=== PATIENT | male | born 1950 | race African-American/Black ===

== ENCOUNTER 2016-02-24 14:04 | Inpatient (IN) | payer OTHER ==
[~2016-02-24] VITALS: Ht 172.7 cm; Wt 75.3 kg
--- NOTE | ~2016-02-24 | HC ---
[facility] [place] [address] CONSULTATION Name: DEBBIE SANTOYO Room #: 451-P [facility] IN M.R.#: [id number] Admission: 02/24/16 Attend Phys: Cabrera Krishna MD Discharge: Date of : 54 Report #: [id number] THIS REPORT FOR: //name// CC: FAM unknown Cabrera Krishna The patient is a 65-year-old male admitted with increased shortness of breath, noted to have a history of daily ETOH usage up to a pint of vodka along with marijuana usage and methamphetamine IV. He was diagnosed with a community-acquired pneumonia and large pleural effusion. His course was complicated by a code blue on February 24 where he was noted to have significant aspiration. He was mechanically ventilation. He has since been extubated, has been very slow to recover. He is noted to have considerable cognitive deficits with considerable dysarthric speech and has upper and lower extremity weakness. He has been seen by neurology, thought to have a hypoxic encephalopathy. CT scan of the brain was essentially negative for stroke. We are seeing him in rehabilitation consultation. PAST MEDICAL HISTORY: His prior medical history included back pain and migraines. He has a history of drug abuse as noted above. MEDICATIONS: Please see the full medication listing. SOCIAL HISTORY: The patient is noted to be living with a roommate in an apartment. There are a couple of friends that are there with him. Roommate indicated that he could return back to that apartment when he is felt to be ready for discharge. He apparently receives social security insurance. Psychiatry is seeing him this hospitalization and indicates the patient does not need a guardian, but that at discharge he should be outlined. REVIEW OF SYSTEMS: Somewhat difficult with his dysarthria. Did not complaining of any chest pain, shortness of breath or abdominal discomfort. PHYSICAL EXAMINATION: GENERAL: A 65-year-old -[place]an male in no obvious distress. VITAL SIGNS: Temp 98, pulse 80, respirations 18, blood pressure 117/67. He is dysarthric. He can tell me the name of the hospital and can tell me the state he is in. He is unable to tell me the year. EOMs appeared to be full. I could not detect any obvious focal facial weakness, but again he has some difficulty with pronunciation. He roommate indicated he typically talked that way beforehand per notes. As far as his upper extremities appeared to have bilateral upper extremity weakness, right hand appeared to be somewhat weaker than the left hand with some clumsiness and difficulty with fine finger dexterity. He had a little better dexterity of the left hand. There was some difficulty getting him to follow directions and commands. I would grade his strength at probably a grade 3+/5, left upper extremity, proximal right upper extremity and more of a 3/5 distal right upper extremity. In his lower [address] [address] CONSULTATION Name: DEBBIE SANTOYO Room #: 451-P [facility] IN M.R.#: [id number] Admission: 02/24/16 Attend Phys: Cabrera Krishna MD Discharge: Date of : 54 Report #: [id number] extremities, he appeared a little stronger probably more of grade 3+ to may be 4-/5. DTRs were trace to 1. I did not assess sensation. In physical therapy, he was noted to have very poor command following and was max assist the bed. In speech therapy, he has moderate to severe cognitive and expressive deficits. He is on a mechanical soft, thin liquid diet. ASSESSMENT: A 65-year-old male with the following problems: 1. Hypoxic encephalopathy post-code blue. 2. Significant generalized debilitation. He has weakness of both upper and lower extremities, but will have clumsiness of his hands as well, right more than left. Some of this is difficult to assess with his limited command following. 3. Moderate to severe cognitive and expressive deficits. 4. Acute respiratory failure with emesis/likely aspiration/pneumonia. He has been extubated, completed antibiotics. 5. Pleural effusion with prior thoracentesis, chest tube was removed. 6. Cardiomyopathy. 7. History of IV drug abuse. 8. History of ETOH abuse. PLAN: His tolerance is very limited and he has difficulty with command following. Would consider long-term acute care options such as [facility], etc. If his tolerance improves, he may be a candidate for an acute inpatient rehabilitation stay. Social support is limited, but we will follow along with you. Thank you for asking us to assist in this patient's care. <ELECTRONICALLY SIGNED> By: Magan Gracia MD 03/17/16 1617 1613 2346 Magan Gracia MD /nt
--- NOTE | ~2016-02-24 | HC ---
[facility] [place] [address] CONSULTATION Name: DEBBIE SANTOYO Room #: 451-P ADM IN M.R.#: [id number] Admission: 02/24/16 Attend Phys: Cabrera Krishna MD Discharge: Date of : 54 Report #: [id number] THIS REPORT FOR: //name// CC: FAM unknown Cabrera Krishna DATE OF SERVICE: 03/10/2016 HISTORY OF PRESENT ILLNESS: This gentleman was admitted a couple of weeks ago as undomiciled and an altered mental status. It turns out although he does have a history of drug and alcohol use, he actually does live in a ground floor duplex with Mr. Vitaly Root on [address] There has been overall improvement in his mental state, do agree that his speech has been a bit more understandable at times. He was not very understandable when I saw him today, nor was he able to answer simple questions. PAST PSYCHIATRIC HISTORY: Unable to obtain from the patient. PAST MEDICAL HISTORY: Unable to obtain from the patient. Back pain and migraines per the medical record. There is a right pulmonary infiltrate. SOCIAL HISTORY: Apparently some history of alcohol and drug use. MENTAL STATUS EXAM: -Guine[place] male, confused, disoriented, garbled speech, no agitation. Insight and judgment impaired. DIAGNOSES: AXIS I: Polysubstance use disorder, encephalopathy. AXIS II: Deferred. AXIS III: See past medical history. AXIS IV: Severe. AXIS V: 20. RECOMMENDATIONS: It does not appear that the patient can make decisions or give informed consent at this time. Agree with the medication Seroquel. He has been in restraints recently. It is also possible that we may give some IV Depakote, I will order ammonia if this has not been done to rule out any other causes relative to the encephalopathy. <ELECTRONICALLY SIGNED> By: Lencho Kiser MD 03/17/16 1412 1642 1735 Lencho Kiser MD /nt
--- NOTE | ~2016-02-24 | EEG ---
[facility] [place] [address] ELECTROENCEPHALOGRAM Name: DEBBIE SANTOYO Room #: 244-P ADM IN M.R.#: [id number] Admission: 02/24/16 Attend Phys: Cabrera Krishna MD Discharge: Date of : 54 Report #: [id number] THIS REPORT FOR: //name// CC: FAM unknown Cabrera Krishna DATE OF SERVICE: 02/27/2016 This patient is being evaluated for altered mental status. EEG was done by placing the electrodes by standard 10/20 system of electrode placement. Both referential and sequential montages were used for recording. Background activity in this patient's EEG does go to about 6 Hz and 15-20 microvolts. During of most of the recording, the background activity is slower than that. Photic stimulation is unremarkable. No active epileptiform activity was noticed. IMPRESSION: This is a severely abnormal EEG because it is slow and poorly formed. That is a nonspecific abnormality which can occur with encephalopathy, effect of psychotropic medication, dementia, etc. Well defined cortical activity is present, but presently it is severely abnormal. If prognostication is desired, serial EEG will be necessary. Thank you very much for this referral. <ELECTRONICALLY SIGNED> By: Milton Sibley MD 02/28/16 1235 1804 1837 Milton Sibley MD /nt
--- NOTE | ~2016-02-24 | 2DMMODE ---
[facility] [address] [place] [address] 2 D/M-MODE ECHOCARDIOGRAM Name: DEBBIE SANTOYO Room #: 244-P [facility] IN .R.#: [id number] Admission: 02/24/16 Attend Phys: Cabrera Krishna MD Discharge: Date of : 54 Date of Service: 02/26/16 0833 Report #: [id number] THIS REPORT FOR: //name// Transthoracic Echocardiography Ordering physician: Gurmeet Mobley Referring physician: Gurmeet Mobley Computer Repair Engineer: KHADRA De La Paz Indications/History: Dyspnea, Edema. BP: 121 / HR: 100bpm Height: 67in Weight: 169.6lb 64 Study data: M-mode, complete 2D, complete spectral Doppler, and color Doppler. Location: Bedside. Routine. Image quality was good. 2D measurements Normal Normal LVID ED 49.5mm 36-57 IVS ED 12.1mm 6-11 LVID ES 38.6mm 23-40 LVPW ED 13.1mm 6-11 LA volume 34ml/m2 16-28 AoRoot diam 27.7mm 21-37 index ED LVOT diameter 20mm 18-23 Findings: Left ventricle: The cavity size was normal. Wall thickness was normal. Systolic function was mildly reduced. The estimated ejection fraction was in the range of 45% to 50%. Diffuse hypokinesis. Regional wall motion abnormalities: Possible hypokinesis of the basalinferior myocardium. Right ventricle: The cavity size was dilated. Systolic function was reduced by visual assessment. Right atrium: The atrium was dilated. Left atrium: The atrium was at the upper limits of normal in size. Volume index: 34ml/m2 (S). Aortic valve: Trileaflet; mildly thickened, mildly calcified leaflets. Doppler: There was no stenosis. Mild regurgitation. Peak velocity: 142.9cm/s (S). [facility] [address] [place] [address] 2 D/M-MODE ECHOCARDIOGRAM Name: DEBBIE SANTOYO Room #: 244-P [facility] IN Juan Ramon#: [id number] Admission: 02/24/16 Attend Phys: Cabrera Krishna MD Discharge: Date of : 54 Date of Service: 02/26/16 0833 Report #: [id number] Mitral valve: Mildly calcified annulus. Doppler: There was no evidence for stenosis. Mild regurgitation. Peak E-wave velocity: 66.1cm/s. Peak A-wave velocity: 85.5cm/s. Tricuspid valve: Structurally normal valve. Doppler: There was no evidence for stenosis. Mild regurgitation. Regurgitant peak velocity: 288.1cm/s. Peak RV-RA gradient: 33mm Hg (S). Pulmonic valve: Structurally normal valve. Doppler: There was no evidence for stenosis. Trivial regurgitation. Pericardium: There was no pericardial effusion. Aorta: Aortic root: The aortic root was normal in size. Pulmonary artery: Systolic pressure was estimated to be 48mm Hg. Diastolic function: Doppler parameters are consistent with abnormal left ventricular relaxation (grade 1 diastolic dysfunction). Systemic veins: Inferior vena cava: The vessel was dilated; respirophasic changes in dimension were absent. Conclusions 1. Left ventricle: Systolic function was mildly reduced. The estimated ejection fraction was in the range of 45% to 50%. Possible hypokinesis of the basalinferior myocardium. Doppler parameters are consistent with abnormal left ventricular relaxation (grade 1 diastolic dysfunction). 2. Right ventricle: The cavity size was dilated. Systolic function was reduced by visual assessment. 3. Right atrium: The atrium was dilated. 4. Aortic valve: Trileaflet; mildly thickened, mildly calcified leaflets. There was no stenosis. Mild regurgitation. 5. Mitral valve: Mildly calcified annulus. Mild regurgitation. 6. Pericardium, extracardiac: There was no pericardial effusion. [facility] [address] [place] [address] 2 D/M-MODE ECHOCARDIOGRAM Name: DEBBIE SANTOYO Room #: 244-P ADM IN M.R.#: [id number] Admission: 02/24/16 Attend Phys: Cabrera Krishna MD Discharge: Date of : 54 Date of Service: 02/26/1633 Report #: [id number] 7. Pulmonary arteries: Systolic pressure was estimated to be 48mm Hg. <ELECTRONICALLY SIGNED> By: Jose Garcia MD, [facility] 02/26/16920 0 Jose Garcia MD, [facility] /sybil
--- NOTE | ~2016-02-24 | EKG ---
[address] [address] ELECTROCARDIOGRAM REPORT Name: DEBBIE SANTOYO Room #: 244-P ADM IN M.R.#: [id number] Admission: 02/24/16 Attend Phys: Cabrera Krishna MD Discharge: Date of : 54 Report #: [id number] THIS REPORT FOR: //name// [facility] Test Date: 2016-02-25 Test Time: 18:58:16 Pat Name: DEBBIE SANTOYO Department: Room: 244 Gender: M Marketing Reporting Analyst: Awa SHEPHERD : 1950 Requested By: Cabrera Krishna Order Number: [id number] MD: Dash Blanc Measurements Intervals [place] Rate: 123 P: 39 DE: 136 QRS: 124 QRSD: 145 T: 41 QT: 339 QTc: 485 Interpretive Statements Sinus tachycardia Probable left atrial enlargement RBBB and LPFB LVH by voltage Electronically Signed On 02-26-2016 8:21:19 CATTLE INSPECTOR by Dash Blanc [email or web address] <ELECTRONICALLY SIGNED> By: Dash Blanc MD 02/26/16 0821 1857 57 Dash Blanc MD /MARLO
--- NOTE | ~2016-02-24 | H ---
[facility] [place] [address] HISTORY AND PHYSICAL Name: DEBBIE SANTOYO Room #: 244-P ADM IN M.R.#: [id number] Admission: 02/24/16 Attend Phys: Cabrera Krishna MD Discharge: Date of : 54 Report #: [id number] THIS REPORT FOR: //name// CC: FAM unknown Cabrera Krishna DATE OF SERVICE: 02/24/2016 CHIEF COMPLAINT: Shortness of air. HISTORY OF PRESENT ILLNESS: The patient is a 65-year-old male who presented to the ER with increasing shortness of air for the past several weeks, became significantly worse in the last day or two. He started over the counter meds without relief. He has been nauseated as well and has occasional vomiting. He does report he drinks alcohol daily up to a pint of vodka. He also smokes marijuana on a regular basis and has used methamphetamine at least twice a week by injecting it. He says his last use of it was 2 days ago, his last drink was today. PAST MEDICAL HISTORY: Significant for: 1. Back pain. 2. Migraines. MEDICATIONS: No home meds. SOCIAL HISTORY: He does smoke cigarettes and marijuana, drinks alcohol as above and uses methamphetamine and marijuana. REVIEW OF SYSTEMS: CONSTITUTIONAL: He is not aware of any fevers or chills. HEENT: No headaches or visual changes. CHEST: Per above with cough and sputum production and shortness of air. GASTROINTESTINAL: Currently he is positive for nausea, no diarrhea. GENITOURINARY: No burning or frequency. EXTREMITIES: Sores on his arms from injecting. No new complaints. OBJECTIVE: VITAL SIGNS: In the ER, blood pressure is 177/96, pulse is 110, respiratory rate 24, O2 sat was 100% on 2 liters. GENERAL: The patient is awake, alert and more comfortable, reports now with the oxygen, he is in no acute distress. His next neighbor is with him at the bedside and helps with the history. She has been considered to be a power of consumer attorney per him. HEENT: His mucous membranes are moist. NECK: Supple, without adenopathy, thyromegaly or bruits. LUNGS: Chest shows wheezing bilaterally with crackles in the base on the left. [address] [address] HISTORY AND PHYSICAL Name: DEBBIE SANTOYO Room #: 244-P [facility] IN M.R.#: [id number] Admission: 02/24/16 Attend Phys: Cabrera Krishna MD Discharge: Date of : 54 Report #: [id number] CARDIOVASCULAR: Regular rhythm with a 3/6 systolic ejection murmur. ABDOMEN: Soft, nondistended, nontender, no masses. Bowel sounds are active. EXTREMITIES: 2+ edema in the knees. Pulses are intact. NEUROLOGIC: He has normal motor and sensory bilaterally. SKIN: He has multiple nodules with ulcerations over the veins on both arms. LABORATORY DATA: EKG shows sinus tachycardia at a rate of 110. He has IVCD as well. His sodium is 135, potassium 4.8, chloride 97, bicarbonate 31, BUN 11, creatinine 0.7, glucose is 88, magnesium 1.7. AST is 75, ALT 45, CK is 135. MB is 3.4. Troponin less than 0.04. C-reactive protein is 13.7. BNP was 1399, albumin 3.3. INR 1.5. D-dimer 1.69. WBC is 7.9, hemoglobin 7.9, hematocrit 26.5, platelet count 446; 79 segs, 15 lymphs. His HIV was nonreactive. Chest x-ray shows extensive right hemithorax classification with infiltrate and effusion and possible mass. CT shows a large right pleural effusion with atelectasis involving the middle and lower lobe on the right. ASSESSMENT: 1. Community acquired pneumonia. 2. History of IV drug use. 3. History of alcohol abuse. 4. Severe anemia. 5. Large pleural effusion. PLAN: 1. He will be admitted, started on pneumonia protocol, we will cover him with vancomycin and Zosyn in light of his IV drug use and we will consult IR for possible draining if the effusion tomorrow. We will consult Pulmonary to see tomorrow. 2. For the anemia, he already has been ordered transfusion of packed red cells for today. We will do GI prophylaxis for any possible bleeding. We will heme test stools. 3. Alcohol abuse. We will place him on lorazepam for alcohol withdrawal. <ELECTRONICALLY SIGNED> By: Jamal Garcia MD 03/02/16 1632 02 42 Jamal Garcia MD /nt
--- NOTE | ~2016-02-24 | EKG ---
[address] [place] [address] ELECTROCARDIOGRAM REPORT Name: DEBBIE SANTOYO Room #: 459-P ADM IN M.R.#: [id number] Admission: 02/24/16 Attend Phys: Cabrera Krishna MD Discharge: Date of : 54 Report #: [id number] THIS REPORT FOR: //name// [facility] Test Date: 2016-02-24 Test Time: 17:21:33 Pat Name: DEBBIE SANTOYO Department: Room: 459 Gender: M Hvac Journeyman: SHADY : 1950 Requested By: Rhett Noble Order Number: [id number] MD: Jose Garcia Measurements Intervals [place] Rate: 111 P: 41 GA: 141 QRS: 76 QRSD: 138 T: 27 QT: 362 QTc: 492 Interpretive Statements Sinus tachycardia Right bundle branch block No previous ECG available for comparison Electronically Signed On 02-25-2016 9:00:35 INTERIOR DESIGN PRINCIPAL by Jose Garcia [email or web address] <ELECTRONICALLY SIGNED> By: Jose Garcia MD, [facility] 02/25/16 0900 172 20 Jose Garcia MD, FACC /EPI
--- NOTE | ~2016-02-24 | HC ---
[facility] [place] [address] CONSULTATION Name: DEBBIE SANTOYO Room #: 451-P [facility] IN M.R.#: [id number] Admission: 02/24/16 Attend Phys: Cabrera Krishna MD Discharge: 03/18/16 Date of : 54 Report #: [id number] THIS REPORT FOR: //name// CC: FAM unknown Cabrera Krishna DATE OF SERVICE: 03/06/2016 ATTENDING PHYSICIAN: Miya Gusman M.D. REASON FOR CONSULTATION: Refractory hypernatremia. HISTORY OF PRESENT ILLNESS: This unfortunate gentleman presented with shortness of breath, apparently was taking no medications, really had not been getting any medical care and reportedly was homeless. He developed worsening pneumonia and then a cardiorespiratory arrest and has developed anoxic brain injury. He was eventually extubated. He is now up on the floor but having trouble with refractory hypernatremia with serum sodium today of 155. PAST MEDICAL HISTORY: Really not much documented. The patient is not much of a historian, really not giving me much of anything at this point. Otherwise, past history is notable for alcoholism, marijuana and cigarette smoking and amphetamine use. There is some history of back pain and migraines. REVIEW OF SYSTEMS: Really cannot be taken. PHYSICAL EXAMINATION: GENERAL: This is an elderly gentleman in no particularly distress. He is a bit confused. SKIN: Unremarkable. SKELETAL: Well developed and well nourished. HEENT: Extraocular movements are full. Vision appears to be intact. Mucous membranes are a bit dry. He has got nasal cannula oxygen. NECK: Supple, no JVD or lymphadenopathy. CHEST: Shows coarse breath sounds. HEART: Regular. ABDOMEN: Soft and nontender. EXTREMITIES: Show no edema. NEUROLOGIC: He moves all extremities, but he is not oriented. LABORATORY DATA: No urine studies whatsoever on the chart. Hemoglobin is 9.2, white count 16.4, the sodium is 155, potassium was 3.7, chloride 113, bicarbonate 35, BUN 30 and creatinine 1.2. ASSESSMENT AND PLAN: Refractory hypernatremia. He has been rather ill. He appears to be having some trouble with free water conservation. I will increase [facility] [address] [place] [address] CONSULTATION Name: DEBBIE SANTOYO Room #: 451-P [facility] IN M.R.#: [id number] Admission: 02/24/16 Attend Phys: Cabrera Krishna MD Discharge: 03/18/16 Date of : 54 Report #: [id number] free water administration in an effort to dilute his serum sodium. Of course with the anoxic brain injury, diabetes insipidus always must be considered in a case like this; however, urine outputs have overall not been overly accessible. The workup ____ we had 4 or 5 liters, a few days before that only about 1-2 liters possibly, but he was on some Lasix at that time, so it is hard to say. He is now off the Lasix, so we will see how that ____ out, and I will get some urinary studies. I may need to repeat those in another day or two off the Lasix. I have increased his free water, and we will see how he does. <ELECTRONICALLY SIGNED> By: Quentin Martinez MD 03/19/16 1126 1703 0307 Quentin Martinez MD /nt
--- NOTE | ~2016-02-24 | CNG ---
[facility] [employer] [place] [address] CYTO-NONGYN REPORT PROCEDURE Name: ZAIDISHILO Room #: 244-P ADM IN M.R.#: [id number] Admission: 02/24/16 Date of : 54 Discharge: Report #: [id number] Path Case #: [id number] CYTOPATHOLOGY REPORT COLLECTION DATE: 02/25/2016 RECEIVED DATE: 02/26/2016 SUBMITTING PHYS: Dr. Gurmeet Mobley OTHER PHYS: Dr. Cabrera Krishna CLINICAL HISTORY: None provided. SPECIMEN(S) RECEIVED: A.Pleural fluid * * * * * * * * * * * * FINAL DIAGNOSIS: A. Pleural fluid: - No malignant epithelial cells identified. Occasional mesothelial cells and predominantly chronic inflammatory cells, including scattered lymphocytes, identified. PATHOLOGIST: Stephanie Gamez M.D. REPORT ELECTRONICALLY SIGNED BY: Stephanie Gamez M.D. DATE/TIME: 02/27/2016 12:26 * * * * * * * * * * * * GROSS PATHOLOGY: A. Pleural fluid: The specimen is submitted unfixed, labeled "Shilo Zaidi". Received by the Cytology Department is 20 mL of yellow fluid. One ThinPrep slide and a cell block were prepared. (kg 02/26/16) TEMPORARY RECEPTIONIST(S): MAURO Zelaya([facility]) INITIAL CPT CODE(S): A; 12898, 30934 Professional services performed by [facility] at [facility] [address] [place] [address] Technical services performed by [facility] at [address] [place] [address]., [address], [place] [address]. [facility] [address] [place] [address], [address] [place] [address] [facility] [address] [place] [address] CYTO-NONGYN REPORT PROCEDURE Name: SHILO ZAIDI Room #: 244-P ADM IN M.R.#: [id number] Admission: 02/24/16 Date of : 54 Discharge: Report #: [id number] Path Case #: [id number] PHONE: [phone] DIRECTOR: Lito Horton M.D. * * * END OF REPORT * * *
--- NOTE | ~2016-02-24 | HC ---
[facility] [place] [address] CONSULTATION Name: DEBBIE SANTOYO Room #: 446-P ADM IN M.R.#: [id number] Admission: 02/24/16 Attend Phys: Cabrera Krishna MD Discharge: Date of : 54 Report #: [id number] THIS REPORT FOR: //name// CC: FAM unknown Cabrera Krishna PRIMARY CARE PHYSICIAN: None. REFERRING PHYSICIAN: Dr. Jamal Garcia. REASON FOR REFERRAL: Dyspnea, pneumonia and effusion. HISTORY OF PRESENT ILLNESS: The patient is a 65-year-old -[place] male who presents to Emergency Room with progressive dyspnea for the past several weeks. Chest x-ray revealed a large lateral right-sided pleural effusion. A pulmonary consultation was requested. The patient notes a history of alcohol abuse. He has been drinking vodka. He has been more short of breath for the last 2 weeks. He also notes vomiting recently. He complained of lower extremity edema for the past two weeks along with intermittent chest pains. Currently, he is resting comfortably, no complaints. PAST MEDICAL HISTORY: Remarkable for hypertension, borderline diabetes, hypercholesterolemia, alcohol abuse, tobacco abuse including marijuana, also has history of other illicit drug use including IV methamphetamines, history of migraines and chronic back pain. He gets his care generally at [facility]. ALLERGIES: None noted. HOME MEDICATIONS: List are not known, but he is currently on nebulized albuterol, Protonix, vancomycin, Zosyn, Lasix, tramadol. FAMILY HISTORY: Unknown. Tobacco history as mentioned above including ongoing tobacco abuse along with marijuana, past history of methamphetamine use. SOCIAL HISTORY: Dose admits to history of alcohol abuse. REVIEW OF SYSTEMS: As mentioned above, otherwise 10-point system review negative. PHYSICAL EXAMINATION: [facility] [address] [place] [address] CONSULTATION Name: DEBBIE SANTOYO Room #: 446-P ADM IN M.R.#: [id number] Admission: 02/24/16 Attend Phys: Cabrera Krishna MD Discharge: Date of : 54 Report #: [id number] GENERAL: He is currently resting, sleepy. No obvious distress. Sleeping and resting comfortably. VITAL SIGNS: Temperature is 98 degrees Fahrenheit, pulse is 109, respiratory rate is 22, blood pressure 151/75 mmHg, saturation 93%. HEENT: Normocephalic, atraumatic. NECK: Supple, without any lymphadenopathy or thyromegaly. CHEST: Breath sounds are decreased in the right base. A few scattered crackles. Left lung field shows few scattered crackles in the bases. No wheezes. CARDIOVASCULAR: Normal S1, S2. There is murmurs or gallop. There is no JVD. There is no carotid bruit. Pulses are 2+/4+ bilaterally. ABDOMEN: Soft, nontender, no organomegaly or masses felt. EXTREMITIES: There is no cyanosis or clubbing but remarkable for 1+ bilateral pretibial edema. LABORATORY DATA: Chest x-ray and chest CT as mentioned above showing a large right-sided pleural effusion, mediastinum was unremarkable. Atelectasis noted in the right lower lobe and infiltrates. HIV screen was negative for HIV 1 and type 2. Electrolytes unremarkable except for sodium 137, creatinine 0.9. WBC is 9100 without significant bandemia. ,hemoglobin 7.9, presence of macrocytic hypochromic hypochromia. Albumin 3.3. Cultures so far has been negative. IMPRESSION: 1. Large right-sided pleural effusion in this 65 year old -[place] male with a history of history of tobacco use, alcohol abuse apparent nausea and vomiting. Parapneumonic effusion is suspected with a presumed pneumonia. Aspiration is also likely given his history of alcohol abuse, nausea, vomiting. With his history of lower extremity edema. Cannot rule out component of heart failure. 2. Presumed pneumonia with large right-sided pleural effusion. 3. Recent nausea, vomiting. 4. Tobacco abuse along with marijuana. 5. Substance abuse include methamphetamines. 6. Lower extremity edema, this may be related to cardiac causes versus other etiologies including liver disease, malnutrition. 7. History of hypertension. 8. History of borderline diabetes mellitus. 9. Hypercholesterolemia. 10. Incomplete history, we will request records from [facility]. RECOMMENDATIONS: 1. Agree with broad spectrum antibiotics to cover for gram-positive and possible aspiration. We will proceed with thoracentesis, but this will be set with diagnostic studies including pH, microbiological studies and cytology. Echocardiogram will be helpful given his lower extremity edema and pleural [address] [address] CONSULTATION Name: DEBBIE SANTOYO Room #: 446-P [facility] IN M.R.#: [id number] Admission: 02/24/16 Attend Phys: Cabrera Krishna MD Discharge: Date of : 54 Report #: [id number] effusion. The patient should also be prophylaxis for possible alcohol withdrawal with thiamine, folate. Bronchodilators will be recommended given history of tobacco use. 2. We will continue antibiotics and complete approximately 10-14 days to therapy depending on the pleural fluid analysis. Thank you for this consultation. <ELECTRONICALLY SIGNED> By: Gurmeet Mobley MD 03/06/16 1634 [id number] [id number] Gurmeet Mobley MD /nt
[2016-02-24 14:08] VITALS: BP 177/96
[2016-02-24 15:59] LABS: HEMATOCRIT 26.5 % (42.0-52.0); HEMOGLOBIN 7.9 gm/dL (14.0-18.0); MCH 15.9 pg (26.0-34.0); MCHC 29.7 % (28.0-37.0); MCV 53.5 fL (80.0-100.0); PLATELET COUNT 446 thou/uL (150-400); RBC 4.95 mil/uL (4.50-6.00); RDW 22.8 % (10.5-14.5); WBC 7.9 thou/uL (4.0-11.0)
[2016-02-24 16:03] LABS: MANUAL DIFF YES
[2016-02-24 16:08] LABS: ANION GAP 7 mmol/L (7-16); BUN 11 mg/dL (7-18); CALCIUM 8.8 mg/dL (8.5-10.1); CHLORIDE 97 mmol/L (98-107); CO2 31 mmol/L (21-32); CREATININE 0.7 mg/dL (0.6-1.3); GLUCOSE 88 mg/dL (70-99); POTASSIUM 4.8 mmol/L (3.5-5.1); SODIUM 135 mmol/L (136-145)
[2016-02-24 16:14] LABS: INR 1.5; PROTIME 15.2 Seconds (9.3-11.4)
[2016-02-24 16:18] LABS: ABSOLUTE NEUTROPHILS 6.2 thou/uL (1.4-8.2); TOTAL CELL COUNT 100
[2016-02-24 16:19] LABS: ANISOCYTOSIS 2+; HYPOCHROMASIA 3+; MACROCYTES 2+
[2016-02-24 16:24] LABS: ALBUMIN 3.3 g/dL (3.4-5.0); ALKALINE PHOSPHATASE 75 U/L (46-116); CK-MB MASS 3.4 ng/mL (<0.5-3.6); MAGNESIUM 1.7 mg/dL (1.8-2.4); NT-PRO BRAIN NAT PEPTIDE 1399 pg/mL (<300); SGOT 75 U/L (15-37); SGPT 45 U/L (30-65); TOTAL PROTEIN 7.9 g/dL (6.4-8.2); TROPONIN-I < 0.04 ng/mL (<0.04-0.07)
[2016-02-24 17:47] LABS: HIV-1 P24 AG Nonreactive (Nonreactive)
[2016-02-24 18:55] VITALS: BP 189/94
[2016-02-24 21:34] VITALS: BP 143/107; BP 180/96
[2016-02-25] VITALS (15 sets, daily range): BP systolic 73–198; BP diastolic 49–121
[2016-02-25 04:49] LABS: HEMATOCRIT 34.8 % (42.0-52.0); MCHC 29.3 % (28.0-37.0); RBC 5.68 mil/uL (4.50-6.00); RDW 31.4 % (10.5-14.5); WBC 9.1 thou/uL (4.0-11.0)
[2016-02-25 05:25] LABS: HEMOGLOBIN 10.2 gm/dL (14.0-18.0); MCV 61.4 fL (80.0-100.0)
[2016-02-25 06:30] LABS: CREATININE 0.9 mg/dL (0.6-1.3); POTASSIUM 4.5 mmol/L (3.5-5.1)
[2016-02-25 20:18] LABS: CREATININE 1.2 mg/dL (0.6-1.3); MAGNESIUM 1.8 mg/dL (1.8-2.4); POTASSIUM 4.6 mmol/L (3.5-5.1)
[2016-02-25 20:22] LABS: ABG SAMPLE TYPE ARTERIAL; BE(vivo) 3.3 mmol/L (-2 to +3); HCO3 32.2 mmol/L (22.0-26.0); LACTATE 2.62 mmol/L (0.5-2.0); O2(CT) 17.2 mL/dL (15.0-23.0); O2Hb 97.6 % (92.0-98.0); PO2 303.2 mmHg (80.0-100.0); sO2 99.6 % (92.0-98.0); tCO2 34.5 mmol/L (24.0-30.0)
[2016-02-25 20:23] LABS: PCO2 73.3 mmHg (35.0-45.0); STICK SITE L.RADIAL; TIDAL VOLUME 500 ml; pH 7.261 (7.360-7.450)
[2016-02-26] VITALS (29 sets, daily range): BP systolic 96–165; BP diastolic 60–84
[2016-02-26 04:17] LABS: ABG COMMENT A/C MODE; ABG SAMPLE TYPE ARTERIAL; BE(vivo) 5.1 mmol/L (-2 to +3); HCO3 30.3 mmol/L (22.0-26.0); LACTATE 1.37 mmol/L (0.5-2.0); O2(CT) 15.6 mL/dL (15.0-23.0); O2Hb 96.9 % (92.0-98.0); PCO2 47.4 mmHg (35.0-45.0); PO2 129.3 mmHg (80.0-100.0); STICK SITE L.RADIAL; TIDAL VOLUME 500 ml; pH 7.423 (7.360-7.450); sO2 98.6 % (92.0-98.0); tCO2 31.7 mmol/L (24.0-30.0)
[2016-02-26 05:58] LABS: HEMATOCRIT 34.4 % (42.0-52.0); HEMOGLOBIN 10.1 gm/dL (14.0-18.0); MCH 17.4 pg (26.0-34.0); MCHC 29.3 % (28.0-37.0); MCV 59.5 fL (80.0-100.0); RBC 5.78 mil/uL (4.50-6.00); RDW 31.9 % (10.5-14.5); WBC 21.7 thou/uL (4.0-11.0)
[2016-02-26 06:01] LABS: MANUAL DIFF YES; PLATELET COUNT 310 thou/uL (150-400)
[2016-02-26 06:06] LABS: INR 1.5; PROTIME 15.9 Seconds (9.3-11.4)
[2016-02-26 06:16] LABS: ALBUMIN 2.2 g/dL (3.4-5.0); CALCIUM 8.2 mg/dL (8.5-10.1); MAGNESIUM 1.6 mg/dL (1.8-2.4); POTASSIUM 3.8 mmol/L (3.5-5.1); TOTAL BILIRUBIN 1.1 mg/dL (<0.1-1.0); TOTAL PROTEIN 5.6 g/dL (6.4-8.2); TROPONIN-I 0.06 ng/mL (<0.04-0.07)
[2016-02-26 06:33] LABS: ABSOLUTE NEUTROPHILS 19.3 thou/uL (1.4-8.2); ANISOCYTOSIS 1+; HYPOCHROMASIA 2+; MICROCYTES 1+; TOTAL CELL COUNT 100
[2016-02-26 09:49] LABS: TOTAL VOLUME 60
[2016-02-27] VITALS (26 sets, daily range): BP systolic 133–181; BP diastolic 57–96
[2016-02-27 06:53] LABS: HEMATOCRIT 32.6 % (42.0-52.0); HEMOGLOBIN 9.6 gm/dL (14.0-18.0); MCH 17.6 pg (26.0-34.0); MCHC 29.4 % (28.0-37.0); MCV 59.8 fL (80.0-100.0); RBC 5.46 mil/uL (4.50-6.00); RDW 31.4 % (10.5-14.5); WBC 18.5 thou/uL (4.0-11.0)
[2016-02-27 06:56] LABS: POTASSIUM 3.3 mmol/L (3.5-5.1)
[2016-02-28] VITALS (29 sets, daily range): BP systolic 120–168; BP diastolic 60–91
[2016-02-28 06:41] LABS: HEMATOCRIT 31.8 % (42.0-52.0); MCH 17.3 pg (26.0-34.0); MCHC 28.4 % (28.0-37.0); MCV 60.8 fL (80.0-100.0); RBC 5.23 mil/uL (4.50-6.00); RDW 33.4 % (10.5-14.5); WBC 14.2 thou/uL (4.0-11.0)
[2016-02-28 06:51] LABS: INR 1.4
[2016-02-28 07:15] LABS: CALCIUM 8.1 mg/dL (8.5-10.1); CREATININE 0.9 mg/dL (0.6-1.3); POTASSIUM 3.2 mmol/L (3.5-5.1)
[2016-02-29] VITALS (52 sets, daily range): BP systolic 117–178; BP diastolic 58–90
[2016-02-29 11:01] LABS: HEMATOCRIT 32.2 % (42.0-52.0); HEMOGLOBIN 9.5 gm/dL (14.0-18.0); MCH 17.8 pg (26.0-34.0); MCHC 29.6 % (28.0-37.0); MCV 60.1 fL (80.0-100.0); PLATELET COUNT 208 thou/uL (150-400); RBC 5.36 mil/uL (4.50-6.00); RDW 33.5 % (10.5-14.5); WBC 10.4 thou/uL (4.0-11.0)
[2016-02-29 11:05] LABS: MANUAL DIFF YES
[2016-02-29 11:08] LABS: CALCIUM 7.8 mg/dL (8.5-10.1); POTASSIUM 3.3 mmol/L (3.5-5.1)
[2016-02-29 11:29] LABS: ABSOLUTE NEUTROPHILS 8.3 thou/uL (1.4-8.2); TOTAL CELL COUNT 100
[2016-02-29 11:30] LABS: ANISOCYTOSIS 2+; HYPOCHROMASIA 2+; OVALOCYTES 1+; POIKILOCYTOSIS 2+; SCHISTOCYTES FEW; TARGET CELLS 2+
[2016-02-29 11:31] LABS: POLYCHROMASIA SLIGHT
[2016-03-01] VITALS (19 sets, daily range): BP systolic 133–167; BP diastolic 61–82
[2016-03-01 03:34] LABS: HEMOGLOBIN 9.3 gm/dL (14.0-18.0); MCH 17.5 pg (26.0-34.0); RBC 5.31 mil/uL (4.50-6.00); WBC 13.7 thou/uL (4.0-11.0)
[2016-03-01 03:44] LABS: POTASSIUM 3.3 mmol/L (3.5-5.1)
[2016-03-01 03:46] LABS: HEMATOCRIT 32.9 % (42.0-52.0); MCHC 28.2 % (28.0-37.0); MCV 61.9 fL (80.0-100.0); RDW 33.6 % (10.5-14.5)
[2016-03-02] VITALS (36 sets, daily range): BP systolic 138–183; BP diastolic 59–99
[2016-03-02 05:31] LABS: HEMATOCRIT 28.6 % (42.0-52.0); HEMOGLOBIN 8.4 gm/dL (14.0-18.0); MCH 17.5 pg (26.0-34.0); MCHC 29.3 % (28.0-37.0); MCV 59.7 fL (80.0-100.0); RBC 4.79 mil/uL (4.50-6.00); RDW 32.8 % (10.5-14.5)
[2016-03-02 06:05] LABS: CALCIUM 7.7 mg/dL (8.5-10.1); CREATININE 1.1 mg/dL (0.6-1.3); POTASSIUM 3.2 mmol/L (3.5-5.1)
[2016-03-02 11:14] LABS: BF LINING CELLS 12; BF MACROPHAGE 5; BF NEUTROPHILS 1; BF NUCLEATED CELLS 719; BF RBC 1000; CLARITY CLEAR; COLOR YELLOW
[2016-03-02 11:15] LABS: BODY FLUID PROTEIN 4.1
[2016-03-02 11:16] LABS: BODY FLUID ALBUMIN 2.2; BODY FLUID GLUCOSE 107; BODY FLUID LDH 124
[2016-03-02 12:46] LABS: ABG SAMPLE TYPE ARTERIAL; BE(vivo) 3.2 mmol/L (-2 to +3); HCO3 28.6 mmol/L (22.0-26.0); LACTATE 0.85 mmol/L (0.5-2.0); O2(CT) 13.4 mL/dL (15.0-23.0); O2Hb 97.5 % (92.0-98.0); PCO2 47.3 mmHg (35.0-45.0); PO2 108.3 mmHg (80.0-100.0); pH 7.399 (7.360-7.450); sO2 97.9 % (92.0-98.0)
[2016-03-02 12:47] LABS: ABG COMMENT CPAP TRIAL; Pressure Support 5 cm H20; STICK SITE R.RADIAL; TIDAL VOLUME 295 ml
[2016-03-03] VITALS (34 sets, daily range): BP systolic 115–184; BP diastolic 55–86
[2016-03-03 04:09] LABS: CALCIUM 8.2 mg/dL (8.5-10.1); POTASSIUM 3.4 mmol/L (3.5-5.1)
[2016-03-03 21:07] LABS: FOLIC ACID 4.2 ng/mL (>3.0); TSH 2.87 uIU/mL (0.450-4.500)
[2016-03-04] VITALS (7 sets, daily range): BP systolic 141–173; BP diastolic 62–84
[2016-03-04 20:09] LABS: % SATURATION 8 % (15-55); IRON 21 ug/dL (38-169); TIBC 261 ug/dL (250-450); UIBC 240 ug/dL (111-343)
[2016-03-05] VITALS (7 sets, daily range): BP systolic 141–199; BP diastolic 63–104
[2016-03-05 06:01] LABS: HEMOGLOBIN 9.4 gm/dL (14.0-18.0); MCH 17.5 pg (26.0-34.0); MCHC 28.4 % (28.0-37.0); MCV 61.6 fL (80.0-100.0); RBC 5.37 mil/uL (4.50-6.00); RDW 34.4 % (10.5-14.5); WBC 15.7 thou/uL (4.0-11.0)
[2016-03-05 06:24] LABS: CALCIUM 8.6 mg/dL (8.5-10.1); CREATININE 1.5 mg/dL (0.6-1.3); POTASSIUM 3.3 mmol/L (3.5-5.1)
[2016-03-06 00:31] VITALS: BP 153/72
[2016-03-06 04:11] VITALS: BP 185/96
[2016-03-06 06:32] LABS: HEMATOCRIT 32.2 % (42.0-52.0); HEMOGLOBIN 9.2 gm/dL (14.0-18.0); MCH 17.4 pg (26.0-34.0); MCHC 28.6 % (28.0-37.0); MCV 60.7 fL (80.0-100.0); RBC 5.3 mil/uL (4.50-6.00); RDW 34.8 % (10.5-14.5); WBC 16.4 thou/uL (4.0-11.0)
[2016-03-06 06:45] LABS: CALCIUM 8.8 mg/dL (8.5-10.1); CREATININE 1.2 mg/dL (0.6-1.3); POTASSIUM 3.3 mmol/L (3.5-5.1)
[2016-03-06 09:01] VITALS: BP 170/102
[2016-03-06 12:59] VITALS: BP 149/64
[2016-03-06 16:54] VITALS: BP 171/76
[2016-03-06 22:29] VITALS: BP 163/56
[2016-03-07 06:17] VITALS: BP 129/71
[2016-03-07 07:16] LABS: HEMATOCRIT 28.3 % (42.0-52.0); HEMOGLOBIN 8.1 gm/dL (14.0-18.0); MCH 17.5 pg (26.0-34.0); MCHC 28.8 % (28.0-37.0); MCV 60.7 fL (80.0-100.0); RBC 4.66 mil/uL (4.50-6.00); RDW 34.6 % (10.5-14.5); WBC 11.7 thou/uL (4.0-11.0)
[2016-03-07 07:29] LABS: ALBUMIN 1.9 g/dL (3.4-5.0); CALCIUM 8.2 mg/dL (8.5-10.1); CREATININE 1.2 mg/dL (0.6-1.3); PHOSPHORUS 2.4 mg/dL (2.5-4.9); POTASSIUM 3.3 mmol/L (3.5-5.1)
[2016-03-07 09:44] VITALS: BP 140/78
[2016-03-07 12:40] VITALS: BP 177/86
[2016-03-07 16:40] VITALS: BP 154/82
[2016-03-08 03:48] VITALS: BP 134/62
[2016-03-08 06:47] LABS: HEMATOCRIT 28.8 % (42.0-52.0); HEMOGLOBIN 8.2 gm/dL (14.0-18.0); MCH 17.4 pg (26.0-34.0); MCHC 28.4 % (28.0-37.0); MCV 61.3 fL (80.0-100.0); RBC 4.7 mil/uL (4.50-6.00); RDW 34.4 % (10.5-14.5); WBC 14.3 thou/uL (4.0-11.0)
[2016-03-08 07:02] LABS: ALBUMIN 2.1 g/dL (3.4-5.0); CALCIUM 8.6 mg/dL (8.5-10.1); CREATININE 1.2 mg/dL (0.6-1.3); PHOSPHORUS 2.4 mg/dL (2.5-4.9); POTASSIUM 3.5 mmol/L (3.5-5.1)
[2016-03-08 09:27] VITALS: BP 142/84
[2016-03-08 13:48] VITALS: BP 136/74
[2016-03-08 14:35] LABS: URINE BILIRUBIN NEGATIVE (Negative); URINE BLOOD 3+ (Negative); URINE COLOR YELLOW; URINE GLUCOSE-RANDOM* NEGATIVE (Negative); URINE KETONES NEGATIVE (Negative); URINE LEUKOCYTES-REFLEX 1+ (Negative); URINE PROTEIN (DIPSTICK) TRACE (Negative)
[2016-03-08 14:44] LABS: CASTS None Seen /LPF (None Seen); SQUAMOUS 0-3 Few /LPF (0-3); URINE RBC >20 Many /HPF (0-2); URINE WBC-REFLEX 6-15 Few /HPF (0-5)
[2016-03-08 14:45] LABS: CRYSTALS None Seen /LPF (None Seen)
[2016-03-08 17:07] VITALS: BP 141/72
[2016-03-08 20:05] VITALS: BP 142/79
[2016-03-09 03:20] VITALS: BP 160/78
[2016-03-09 06:40] VITALS: BP 156/76
[2016-03-09 06:55] LABS: ALBUMIN 2.1 g/dL (3.4-5.0); CALCIUM 8.3 mg/dL (8.5-10.1); CREATININE 1.1 mg/dL (0.6-1.3); PHOSPHORUS 3.2 mg/dL (2.5-4.9); POTASSIUM 3.1 mmol/L (3.5-5.1)
[2016-03-09 08:00] VITALS: BP 152/72
[2016-03-09 09:56] LABS: ABSOLUTE NEUTROPHILS 8.7 thou/uL (1.4-8.2); HEMOGLOBIN 8.2 gm/dL (14.0-18.0); MCH 17.6 pg (26.0-34.0)
[2016-03-09 09:58] LABS: BASOPHILS 0.8 % (0.0-2.0); EOSINOPHILS 5.6 % (0.0-3.0); LYMPHOCYTES 13.8 % (24.0-44.0); MCHC 28.2 % (28.0-37.0); MCV 62.4 fL (80.0-100.0); POLYS 71.8 % (36.0-66.0); RBC 4.64 mil/uL (4.50-6.00); WBC 12.1 thou/uL (4.0-11.0)
[2016-03-09 10:01] LABS: MANUAL DIFF NO; PLATELET COUNT 557 thou/uL (150-400)
[2016-03-09 10:21] LABS: ANISOCYTOSIS 2+; MICROCYTES 1+
[2016-03-09 10:22] LABS: HYPOCHROMASIA 2+
[2016-03-09 10:23] LABS: TARGET CELLS FEW
[2016-03-09 12:00] VITALS: BP 136/70
[2016-03-09 16:00] VITALS: BP 157/69
[2016-03-09 20:00] VITALS: BP 140/71
[2016-03-10 01:25] LABS: HEMATOCRIT 28.3 % (42.0-52.0); HEMOGLOBIN 8.2 gm/dL (14.0-18.0); MCH 17.7 pg (26.0-34.0); MCHC 28.8 % (28.0-37.0); MCV 61.5 fL (80.0-100.0); RBC 4.6 mil/uL (4.50-6.00); RDW 34.3 % (10.5-14.5)
[2016-03-10 01:52] LABS: CALCIUM 8.4 mg/dL (8.5-10.1); POTASSIUM 3.8 mmol/L (3.5-5.1)
[2016-03-10 05:25] VITALS: BP 152/84
[2016-03-10 08:30] VITALS: BP 146/69
[2016-03-10 12:31] VITALS: BP 131/72
[2016-03-10 16:30] VITALS: BP 147/75
[2016-03-10 20:14] VITALS: BP 152/75
[2016-03-11 02:57] VITALS: BP 143/70
[2016-03-11 06:14] LABS: CALCIUM 8.2 mg/dL (8.5-10.1); POTASSIUM 3.5 mmol/L (3.5-5.1)
[2016-03-11 09:30] VITALS: BP 136/69
[2016-03-11 12:11] VITALS: BP 116/74
[2016-03-11 16:42] VITALS: BP 133/72
[2016-03-11 20:22] VITALS: BP 134/60
[2016-03-12 03:35] VITALS: BP 148/73
[2016-03-12 04:48] LABS: HEMATOCRIT 27.8 % (42.0-52.0); HEMOGLOBIN 8.1 gm/dL (14.0-18.0); MCH 18.2 pg (26.0-34.0); MCHC 29.3 % (28.0-37.0); MCV 62.1 fL (80.0-100.0); RBC 4.47 mil/uL (4.50-6.00); RDW 34.9 % (10.5-14.5); WBC 9.7 thou/uL (4.0-11.0)
[2016-03-12 05:16] LABS: CALCIUM 8.1 mg/dL (8.5-10.1); CREATININE 0.9 mg/dL (0.6-1.3); POTASSIUM 3.4 mmol/L (3.5-5.1)
[2016-03-12 07:26] VITALS: BP 137/83
[2016-03-12 11:14] VITALS: BP 111/60
[2016-03-12 15:24] VITALS: BP 117/67
[2016-03-12 20:00] VITALS: BP 131/69
[2016-03-13 04:00] VITALS: BP 124/60
[2016-03-13 07:46] VITALS: BP 133/67
[2016-03-13 11:00] VITALS: BP 142/75
[2016-03-13 15:13] VITALS: BP 124/61
[2016-03-13 19:11] VITALS: BP 139/61
[2016-03-14 03:01] VITALS: BP 131/67
[2016-03-14 07:42] VITALS: BP 146/79
[2016-03-14 11:08] VITALS: BP 134/81
[2016-03-14 15:24] VITALS: BP 115/73
[2016-03-14 19:12] VITALS: BP 130/69
[2016-03-15 04:32] VITALS: BP 130/65
[2016-03-15 07:29] VITALS: BP 133/76
[2016-03-15 11:26] VITALS: BP 131/74
[2016-03-15 15:39] VITALS: BP 126/79
[2016-03-15 19:25] VITALS: BP 130/54
[2016-03-16 03:46] VITALS: BP 129/69
[2016-03-16 08:00] VITALS: BP 130/70
[2016-03-16 19:23] VITALS: BP 149/67
[2016-03-17 05:00] VITALS: BP 145/65
[2016-03-17 07:54] VITALS: BP 145/72
[2016-03-17] MEDS ORDERED: SEROQUEL 25 MG25 M1 PER TUBE (13:24)
[2016-03-17] MEDS ORDERED: PERCOCET PO (13:24)
[2016-03-17 15:14] VITALS: BP 114/64
[2016-03-17 19:49] VITALS: BP 147/64
[2016-03-18 08:10] VITALS: BP 146/77
[2016-03-30] MEDS ORDERED: FOLIC ACID 1 MG1 MG PO (10:06)
[2016-03-30] MEDS ORDERED: PERCOCET PO (10:06)
[2016-03-30] MEDS ORDERED: SEROQUEL 25 MG25 M1 PER TUBE (10:06)
[2016-03-30] MEDS ORDERED: COLACE 100 MG100 MG PO (10:06)
[2016-03-30] MEDS ORDERED: TRAMADOL 50 MG50 MG PO (10:06)
[2016-03-30] MEDS ORDERED: NEURONTIN 300300 M1 PO (10:06)
[2016-03-30] MEDS ORDERED: VITAMIN B-1100 M2 PO (10:06)
== END 2016-03-18 12:59 | DRG 207 ==
LOC: ER 14:04 → EROBS 16:42 → 4W 16:42 → ICU 16:42 → 4W 18:43 → ICU 02-25 19:12 → 4S 03-04 00:46 → 4W 03-11 06:27
PROVIDERS: Emergency Medicine; Family Medicine; Hospitalist; Internal Medicine Nephrology; Internal Medicine Pulmonary Disease; Nurse Practitioner Acute Care; Psychiatry & Neurology Neurology
PROC: BB4BZZZ Ultrasonography of Pleura (ICD-10-PCS; principal; 2016-02-24)
PROC: 30233N1 Transfusion of Nonautologous Red Blood Cells into Peripheral Vein, Percutaneous Approach (ICD-10-PCS; principal; 2016-02-24)
PROC: 0W9930Z Drainage of Right Pleural Cavity with Drainage Device, Percutaneous Approach (ICD-10-PCS; principal; 2016-02-24)
PROC: 0BH17EZ Insertion of Endotracheal Airway into Trachea, Via Natural or Artificial Opening (ICD-10-PCS; 2016-02-25)
PROC: 02HV33Z Insertion of Infusion Device into Superior Vena Cava, Percutaneous Approach (ICD-10-PCS; 2016-02-25)
PROC: 5A1955Z Respiratory Ventilation, Greater than 96 Consecutive Hours (ICD-10-PCS; 2016-02-25)
PROC: B548ZZA Ultrasonography of Superior Vena Cava, Guidance (ICD-10-PCS; 2016-02-25)
DX: J69.0 Pneumonitis due to inhalation of food and vomit (principal); G92 Toxic encephalopathy; I50.23 Acute on chronic systolic (congestive) heart failure; J96.01 Acute respiratory failure with hypoxia; E43 Unspecified severe protein-calorie malnutrition; I46.8 Cardiac arrest due to other underlying condition; J90 Pleural effusion, not elsewhere classified; E87.0 Hyperosmolality and hypernatremia; I42.9 Cardiomyopathy, unspecified; N17.9 Acute kidney failure, unspecified; G93.1 Anoxic brain damage, not elsewhere classified; G43.909 Migraine, unspecified, not intractable, without status migrainosus; F17.210 Nicotine dependence, cigarettes, uncomplicated; D64.9 Anemia, unspecified; E78.5 Hyperlipidemia, unspecified; E11.9 Type 2 diabetes mellitus without complications; F15.10 Other stimulant abuse, uncomplicated; F10.10 Alcohol abuse, uncomplicated; E78.00 Pure hypercholesterolemia, unspecified; I10 Essential (primary) hypertension; R41.89 Other symptoms and signs involving cognitive functions and awareness; F12.10 Cannabis abuse, uncomplicated; D50.9 Iron deficiency anemia, unspecified; F19.10 Other psychoactive substance abuse, uncomplicated; G89.29 Other chronic pain; R41.0 Disorientation, unspecified; M54.9 Dorsalgia, unspecified; R11.10 Vomiting, unspecified; Z79.899 Other long term (current) drug therapy; Z79.4 Long term (current) use of insulin; Z68.25 Body mass index [BMI] 25.0-25.9, adult; Z79.2 Long term (current) use of antibiotics; Z59.0 Homelessness; Z98.42 Cataract extraction status, left eye; Z28.21 Immunization not carried out because of patient refusal
CPT/HCPCS: 10045; 10047; 10078; 10100; 10102; 10112; 27000

== ENCOUNTER 2016-07-31 12:50 | Emergency (ER) | payer OTHER ==
[~2016-07-31] VITALS: Ht 172.7 cm; Wt 77.1 kg
--- NOTE | ~2016-07-31 | EKG ---
[place] [address] [facility] [place] [address] ELECTROCARDIOGRAM REPORT Name: DEBBIE SANTOYO [facility]: [facility] [id number] Admission: 07/31/16 Attend Phys: Discharge: 07/31/16 Date of : 54 Report #: [id number] THIS REPORT FOR: //name// [facility] ED Test Date: 2016-07-31 Test Time: 14:39:27 Pat Name: DEBBIE SANTOYO Department: Room: Gender: M Cardiac Catheterization Technologist: purnima damian : 1950 Requested By: Tiago Zeng Order Number: [id number] MD: Jose Garcia Measurements Intervals [place] Rate: 102 P: 44 PA: 171 QRS: 33 QRSD: 134 T: 24 QT: 387 QTc: 505 Interpretive Statements Sinus tachycardia Probable left atrial enlargement Right bundle branch block Prolonged QT interval Compared to ECG 02/25/2016 18:58:16 significant change was found Electronically Signed On 08-02-2016 15:41:38 CDT by Jose Garcia [email or web address] <ELECTRONICALLY SIGNED> By: Jose Garcia MD, MERGED WITH [facility] 08/02/16 1541 1439 1439 Jose Garcia MD, MERGED WITH [facility] /EPI
[~2016-07-31 12:50] MED LIST: COLACE 100 MG100 MG PO; FOLIC ACID 1 MG1 MG PO; NEURONTIN 300300 M1 PO; PERCOCET PO; SEROQUEL 25 MG25 M1 PER TUBE; TRAMADOL 50 MG50 MG PO; VITAMIN B-1100 M2 PO
[2016-07-31 15:23] LABS: HEMATOCRIT 25.5 % (42.0-52.0); HEMOGLOBIN 7.5 gm/dL (14.0-18.0); MANUAL DIFF YES; MCH 16.7 pg (26.0-34.0); MCHC 29.5 g/dL (28.0-37.0); MCV 56.6 fL (80.0-100.0); PLATELET COUNT 412 thou/uL (150-400); RDW 23.5 % (10.5-14.5); WBC 8.9 thou/uL (4.0-11.0)
[2016-07-31 15:25] LABS: CREATININE 0.8 mg/dL (0.7-1.3); POTASSIUM 3.8 mmol/L (3.5-5.1)
[2016-07-31 15:51] LABS: ABSOLUTE NEUTROPHILS 5.3 thou/uL (1.4-8.2); ANISOCYTOSIS 1+; HYPOCHROMASIA 1+; TOTAL CELL COUNT 100
[2016-07-31 15:52] LABS: MICROCYTES 1+
== END 2016-07-31 17:05 ==
LOC: ER 12:50
PROVIDERS: Emergency Medicine
DX: M79.661 Pain in right lower leg (principal); D64.9 Anemia, unspecified; F15.10 Other stimulant abuse, uncomplicated; G43.909 Migraine, unspecified, not intractable, without status migrainosus; F17.210 Nicotine dependence, cigarettes, uncomplicated; F10.99 Alcohol use, unspecified with unspecified alcohol-induced disorder; Z59.0 Homelessness